=== PATIENT | male | born 1980 | race Caucasian/White ===

== ENCOUNTER 2021-12-10 23:33 | Emergency (ER) | payer SELFPAY ==
[~2021-12-10] VITALS: Ht 185.4 cm; Wt 77.0 kg
[2021-12-11] MEDS ORDERED: MIDAZOLAM HCL 2 MG/2 ML VIAL IV ONE ×2 (00:15→03:15)
[2021-12-11] MEDS ORDERED: SODIUM CHLORIDE 0.9% 1,000 ML IV ONE ×2 (00:15→03:15)
[2021-12-11 00:26] LABS: BASOPHILS % 0.3 % (0.0-2.0); EOSINOPHILS % 0.8 % (0.0-5.0); HEMATOCRIT. 44.9 % (42.0-52.0); HEMOGLOBIN. 15.1 g/dL (14.0-18.0); LYMPHOCYTES % 17.2 % (20.0-50.0); MEAN CORPUSCULAR HEMOGLOBIN 31.6 pg (28.0-32.0); MEAN CORPUSCULAR VOLUME 94.2 fL (80.0-94.0); MEAN PLATELET VOLUME 6.9 fl (7.4-10.4); NEUTROPHILS % 69.7 % (40.0-76.0); PLATELET 302 x1000/uL (130-400); RED BLOOD CELL COUNT 4.76 mill/uL (4.7-6.1); RED CELL DISTRIBUTION WIDTH 14.2 % (11.6-14.6)
[2021-12-11 00:33] LABS: CHLORIDE 105 mEq/L (98-107)
[2021-12-11 00:42] LABS: ETHANOL BLOOD < 10 mg/dL
[2021-12-11 02:58] LABS: CLARITY URINE CLEAR (CLEAR); COLOR URINE DARK YELLOW (YELLOW); KETONES URINE 1+ (NEGATIVE); LEUKOCYTE ESTERASE URINE 1+ (NEGATIVE); NITRITE URINE NEGATIVE (NEGATIVE); OCCULT BLOOD URINE NEGATIVE (NEGATIVE); PH URINE 8.5 (4.5-8.0); PROTEIN URINE 2+ (NEGATIVE); SPECIFIC GRAVITY URINE 1.031 (1.005-1.030)
[2021-12-11 03:13] LABS: *AMPHETAMINES SCREEN URINE PRESUMTIVE POSITIVE (NEGATIVE); *BARBITURATES SCREEN URINE NEGATIVE (NEGATIVE); *BENZODIAZEPINES SCREEN URINE PRESUMTIVE POSITIVE (NEGATIVE); *COCAINE SCREEN URINE NEGATIVE (NEGATIVE); CANNABINOID URINE SCREEN PRESUMTIVE POSITIVE (NEGATIVE); METHADONE URINE SCREEN NEGATIVE (NEGATIVE); OPIATES URINE SCREEN NEGATIVE (NEGATIVE); PHENCYCLIDINE URINE SCREEN NEGATIVE (NEGATIVE)
[2021-12-11 09:20] VITALS: BP 142/79
== END 2021-12-11 09:20 | disposition home or self-care (01) ==
LOC: ER 23:33
DX: F19.10 Other psychoactive substance abuse, uncomplicated (principal); E86.0 Dehydration; F23 Brief psychotic disorder; F17.290 Nicotine dependence, other tobacco product, uncomplicated; F15.10 Other stimulant abuse, uncomplicated
CPT/HCPCS: 36415; 80053; 80305; 80320; 81003; 85025; 93005; 99285; J2250; J7030; 96361; 96374; 96376; G0480

== ENCOUNTER 2023-01-30 12:13 | Emergency (ER) | payer MEDICAID ==
[~2023-01-30] VITALS: Ht 172.7 cm; Wt 75.0 kg
[2023-01-30 12:20] VITALS: BP 152/92; PULSE 132; RESP 20; TEMP 98.8; O2SAT 98
[2023-01-30] MEDS ORDERED: LORAZEPAM 2MG/ML CPJ IV ONE (12:30)
[2023-01-30] MEDS ORDERED: SODIUM CHLORIDE 0.9% 1,000 ML IV ONE (12:30)
[2023-01-30 13:11] LABS: BASOPHILS % 0.1 % (0.0-2.0); EOSINOPHILS % 0.2 % (0.0-5.0); HEMATOCRIT. 41.4 % (42.0-52.0); LYMPHOCYTES % 7.8 % (20.0-50.0); MEAN CORPUSCULAR HEMOGLOBIN 31.8 pg (28.0-32.0); MEAN CORPUSCULAR HGB CONC 33.8 g/dL (31.0-37.0); MEAN CORPUSCULAR VOLUME 94.1 fL (80.0-94.0); MEAN PLATELET VOLUME 7.2 fl (7.4-10.4); MONOCYTES % 12.1 % (2.0-8.0); NEUTROPHILS % 79.8 % (40.0-76.0); PLATELET 323 x1000/uL (130-400); PROTHROMBIN TIME 10.9 sec (9.6-11.0); RED CELL DISTRIBUTION WIDTH 14.1 % (11.6-14.6); WHITE BLOOD COUNT 18.5 x1000/uL (4.5-11.0)
[2023-01-30 13:14] LABS: CHLORIDE 105 mEq/L (98-107); INDEX HEMOLYSI 1 (1-3); INDEX ICTERIC 1 (1-4); INDEX LIPEMIC 1 (1-3); POTASSIUM 3.4 mEq/L (3.5-5.1); SODIUM 138 mEq/L (136-145)
[2023-01-30 13:24] LABS: ALANINE AMINOTRANSFERASE 44 IU/L (13-61); ALBUMIN 4.2 g/dL (3.4-5.0); ASPARTATE AMINOTRANSFERASE 67 IU/L (15-37); BILIRUBIN TOTAL 1.2 mg/dL (0.1-1.0); CALCIUM 8.9 mg/dL (8.5-10.1); CARBON DIOXIDE 25 mEq/L (21-32); CREATININE 1.2 mg/dL (0.6-1.3); ETHANOL BLOOD < 10 mg/dL (<10); GLUCOSE 108 mg/dL (70-105); PROTEIN TOTAL 7.8 g/dL (6.0-8.3); UREA NITROGEN BLOOD 18 mg/dL (7-21)
== END 2023-01-30 18:19 | disposition home or self-care (01) ==
LOC: ER 12:13
DX: F19.10 Other psychoactive substance abuse, uncomplicated (principal); F15.90 Other stimulant use, unspecified, uncomplicated
CPT/HCPCS: 80053; 80320; 83690; 85025; 85610; 36415; 71045; 96361; 96374; 99284; J2060; J7030; Z7610 ×5; G0480

== ENCOUNTER 2024-07-29 13:50 | Emergency (ER) | payer MEDICAID ==
[~2024-07-29] VITALS: Ht 172.7 cm; Wt 90.0 kg
[2024-07-29 13:56] VITALS: O2SAT 100
[2024-07-29 16:49] VITALS: BP 121/71; PULSE 94; RESP 16; TEMP 36.6; O2SAT 98
[2024-07-29 17:02] LABS: BASOPHILS % 0.5 % (0.0-2.0); EOSINOPHILS % 0.3 % (0.0-5.0); HEMOGLOBIN. 13.8 g/dL (14.0-18.0); LYMPHOCYTES % 19.8 % (20.0-50.0); MEAN CORPUSCULAR HEMOGLOBIN 30.3 pg (28.0-32.0); MEAN CORPUSCULAR HGB CONC 33.7 g/dL (31.0-37.0); MEAN CORPUSCULAR VOLUME 90.1 fL (80.0-94.0); MEAN PLATELET VOLUME 7.1 fl (7.4-10.4); MONOCYTES % 6.4 % (2.0-8.0); PLATELET 328 x1000/uL (130-400); RED BLOOD CELL COUNT 4.55 mill/uL (4.7-6.1); RED CELL DISTRIBUTION WIDTH 13.9 % (11.6-14.6); WHITE BLOOD COUNT 10.2 x1000/uL (4.5-11.0)
[2024-07-29 17:07] LABS: CHLORIDE 106 mEq/L (98-107); POTASSIUM 4.1 mEq/L (3.5-5.1); SODIUM 141 mEq/L (136-145)
[2024-07-29 17:08] LABS: CALCIUM 9.8 mg/dL (8.7-10.4); CARBON DIOXIDE 27 mEq/L (21-32)
[2024-07-29 17:13] LABS: CREATININE 0.8 mg/dL (0.6-1.3); ETHANOL BLOOD 78 mg/dL (<10); GLUCOSE 99 mg/dL (70-105); UREA NITROGEN BLOOD 9 mg/dL (9-23)
[2024-07-29 17:15] LABS: AMMONIA < 17 uMol/L (<32)
[2024-07-29] MEDS: LORAZEPAM 1MG TABLET PO ONE (17:19)
[2024-07-29] MEDS ORDERED: NALO4SPR BOTHNSTRLS (17:20)
== END 2024-07-29 17:58 | disposition home or self-care (01) ==
LOC: ER 13:50
DX: F10.129 Alcohol abuse with intoxication, unspecified (principal); F15.10 Other stimulant abuse, uncomplicated; R41.0 Disorientation, unspecified; Y90.0 Blood alcohol level of less than 20 mg/100 ml
CPT/HCPCS: 80048; 80320; 82140; 85025; 36415; 70450; 99284; Z7610 ×2; A4606; G0480